=== PATIENT | female | born 1950 ===

== ENCOUNTER 2021-12-14 06:00 | Outpatient (RCR) | payer MEDICARE, SELFPAY | END 2021-12-19 23:59 | disposition home or self-care (01) | LOC: GPT 06:00 | PROVIDERS: Referring Provider Family Medicine; Visit Provider Family Medicine | DX: M54.41 Lumbago with sciatica, right side (principal) | CPT/HCPCS: 97140; 97161 ==

== ENCOUNTER 2021-12-20 06:00 | Outpatient (RCR) | payer MEDICARE, SELFPAY | END 2022-01-19 23:59 | disposition home or self-care (01) | LOC: GPT 06:00 | PROVIDERS: Referring Provider Family Medicine; Visit Provider Family Medicine | DX: M54.40 Lumbago with sciatica, unspecified side (principal) | CPT/HCPCS: 97110; 97112; 97140 ==

== ENCOUNTER 2022-02-07 | Outpatient (RCR) | payer MEDICARE, SELFPAY | END 2022-02-18 23:59 | disposition home or self-care (01) | LOC: GPT | PROVIDERS: Referring Provider Family Medicine; Visit Provider Family Medicine | DX: M54.50 Low back pain, unspecified (principal) | CPT/HCPCS: 97110; 97112; 97140; 97164 ==

== ENCOUNTER 2022-02-19 06:00 | Outpatient (RCR) | payer MEDICARE, SELFPAY | END 2022-03-21 23:59 | disposition home or self-care (01) | LOC: GPT 06:00 | PROVIDERS: Referring Provider Family Medicine; Visit Provider Family Medicine | DX: M54.40 Lumbago with sciatica, unspecified side (principal) | CPT/HCPCS: 97110; 97140 ==